=== PATIENT | male | born 1970 | race African-American/Black ===

== ENCOUNTER 2017-05-05 00:52 | Emergency (ER) | payer SELFPAY ==
[~2017-05-05] VITALS: Ht 170.2 cm; Wt 80.7 kg
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
[2017-05-05] MEDS ORDERED: NO MEDICATIONS (01:04)
== END 2017-05-05 03:10 | disposition home or self-care (01) ==
LOC: SED 00:52
DX: S83.92XA Sprain of unspecified site of left knee, initial encounter (principal); R10.2 Pelvic and perineal pain; I10 Essential (primary) hypertension; X50.0XXA Overexertion from strenuous movement or load, initial encounter
CPT/HCPCS: 29505; 73562; 99283